=== PATIENT | female | born 1995 | race Two or more races ===

== ENCOUNTER 2020-12-25 19:08 | Emergency (ER) | payer SELFPAY ==
[~2020-12-25] VITALS: Ht 157.5 cm; Wt 60.4 kg
[2020-12-25 19:12] VITALS: BP 117/89
[2020-12-25] MEDS ORDERED: OXYMETAZOLINE NASAL SPRAY 0.05%,30ML ONE ×2 (19:44→19:51)
[2020-12-25] MEDS ORDERED: ONDANSETRON ODT 4 MG ONE ×2 (19:44→19:51)
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
--- NOTE | 2020-12-25 19:51 | NUR ---
[facility]S ADMIN PER SEP.
--- NOTE | 2020-12-25 19:58 | NUR ---
PT STATES SHE HAD CTs AT [facility]. MEDICAL RECORDS REQUESTED.
--- NOTE | 2020-12-25 19:59 | NUR ---
SOCIAL WORK AT BEDSIDE
[2020-12-25] MEDS ORDERED: OXYMETAZOLINE NASAL SPRAY 0.05%, 15ML NAS ONE (20:00)
[2020-12-25] MEDS ORDERED: ONDANSETRON ODT 4 MG PO ONE (20:00)
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
--- NOTE | 2020-12-25 20:33 | NUR ---
[facility] AT BEDSIDE.
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
== END 2020-12-25 21:10 | disposition home or self-care (01) ==
LOC: ED 19:59
DX: S02.2XXA Fracture of nasal bones, initial encounter for closed fracture (principal); R04.0 Epistaxis; Y08.89XA Assault by other specified means, initial encounter; Y93.89 Activity, other specified; Y92.009 Unspecified place in unspecified non-institutional (private) residence as the place of occurrence of the external cause; Y99.8 Other external cause status
CPT/HCPCS: 99283; Q0162